=== PATIENT | male | born 1975 | race American Indian/Alaskan Native ===

== ENCOUNTER 2022-03-26 09:34 | Emergency (ER) | payer SELFPAY ==
[2022-03-26 10:42] VITALS: BP 135/89
[2022-03-26 11:24] LABS: Amphetamine Screen,Urine Negative; Benzodiazepines Screen,Urine Negative; Cocaine Screen,Urine Negative; Methadone Screen,Urine Negative; Opiate Screen,Urine Negative
[2022-03-26 11:57] LABS: Cannabinoid Screen,Urine Positive
--- NOTE | 2022-03-26 12:19 | Emergency Department Report ---
ED Recheck HPI - General Chief Complaint: Weakness Stated Complaint: FEELS LIKE SOMEONE DRUG ME Time Seen by Provider: 03/26/22 12:19 Source: patient Mode of arrival: Ambulatory Limitations: No Limitations - History of Present Illness Initial Comments: Patient comes to the emergency room after eating a cupcake last night and started to feel funny. He states that he felt like he was being drugged. He had had a UDS by triage protocol. It was positive for marijuana. Patient states that he indulges in marijuana. There were no other positive drugs in his UDS. Patient educated on marijuana and how it can be displaced with various substances. At the time of exam patient denies any symptoms. He states he feels fine now. He is ambulatory, not ill nontoxic. He is taking p.o. - Related Data Allergies Allergy/AdvReac Type Severity Reaction Status Date / Time No Known Allergies Allergy Verified 03/26/22 10:38 ED Review of Systems ROS: Stated complaint: FEELS LIKE SOMEONE DRUG ME Other details as noted in HPI Comment: All other systems reviewed and negative ED Past Medical Hx - Past Medical History Previous Medical History?: No - Surgical History Past Surgical History?: No - Family History Family history: no significant - Social History Smoking Status: Current Every Day Smoker Substance Use Type: Alcohol, Marijuana ED Physical Exam - General Limitations: No Limitations General appearance: alert, in no apparent distress - Head Head exam: Present: atraumatic, normocephalic - Eye Eye exam: Present: normal appearance - ENT ENT exam: Present: mucous membranes moist - Neck Neck exam: Present: normal inspection - Respiratory Respiratory exam: Present: normal lung sounds bilaterally. Absent: respiratory distress - Cardiovascular Cardiovascular Exam: Present: regular rate, normal rhythm. Absent: systolic murmur, diastolic murmur, rubs, gallop - GI/Abdominal GI/Abdominal exam: Present: soft, normal bowel sounds - Rectal Rectal exam: Present: deferred - Extremities Exam Extremities exam: Present: normal inspection - Back Exam Back exam: Present: normal inspection - Neurological Exam Neurological exam: Present: alert, oriented X3 - Psychiatric Psychiatric exam: Present: normal affect, normal mood - Skin Skin exam: Present: warm, dry, intact, normal color. Absent: rash ED Course Vital Signs 03/26/22 10:41 Temperature 97.8 F Pulse Rate 73 Respiratory 18 Rate Blood Pressure 135/89 O2 Sat by Pulse 99 Oximetry ED Recheck MDM - Core Measures Measure Exclusions: not indicated - Medical Decision Making Vital Signs 03/26/22 10:41 Temperature 97.8 F Pulse Rate 73 Respiratory 18 Rate Blood Pressure 135/89 O2 Sat by Pulse 99 Oximetry Labs 03/26/22 Unknown Urine Opiates Screen Negative Urine Methadone Screen Negative Ur Barbiturates Screen Negative Ur Phencyclidine Scrn Negative Ur Amphetamines Screen Negative U Benzodiazepines Scrn Negative Urine Cocaine Screen Negative U Marijuana (THC) Screen Positive Drugs of Abuse Note Disclamer Patient educated about use of marijuana and how it make him feel. Also regarding what might be contained in the marijuana. On discharge exam patient is relieved and discharged home with marijuana c essation instructions. Patient discharged home with discharge plan of care including diet, activity, medications and follow-up Critical care attestation.: If time is entered above; I have spent that time in minutes in the direct care of this critically ill patient, excluding procedure time. ED Disposition Clinical Impression: Marijuana use Disposition: 01 HOME / SELF CARE / HOMELESS Is pt being admited?: No Does the pt Need Aspirin: No Condition: Stable Instructions: Cannabis Use Disorder Additional Instructions: Avoid marijuana and other drugs Referrals: GEE BALL MD [Staff Physician] - 3-5 Days Time of Disposition: 12:21
== END 2022-03-26 12:22 | disposition home or self-care (01) ==
LOC: ED 09:34
DX: F15.90 Other stimulant use, unspecified, uncomplicated (principal); F17.290 Nicotine dependence, other tobacco product, uncomplicated
CPT/HCPCS: 80307; 99283